=== PATIENT | male | born 1960 | race Caucasian/White ===

== ENCOUNTER → 2022-05-17 12:36 | Outpatient (CLI) | payer OTHER, SELFPAY ==
--- NOTE | ~2022-05-17 | CT_ITS ---
EXAMINATION: CT abdomen pelvis wo con DATE: 05/17/2022 13:05 INDICATION: Left flank pain TECHNIQUE: Computed tomography (CT) of the abdomen and pelvis was performed without intravenous contr ast. The dose-length product (DLP) was 1298.21 mGy-cm. Automated exposure control and iterative recon struction technique were employed. COMPARISON: None FINDINGS: Minimal dependent atelectasis is present in the lung bases. The heart size is normal. Punct ate calcifications in otherwise normal appearing liver and spleen likely represent healed granulomato us disease. The pancreas and adrenal glands are normal. Stones are present in the nondistended gallbl adder. Cysts of the kidneys measure up to 4 cm on the left. No stones are identified in the kidneys, ureters, or bladder. No hydronephrosis or hydroureter. There is severe lumbar spondylosis at L5-S1. T here is no free intraperitoneal gas or evidence of bowel obstruction. IMPRESSION: 1. No CT correlate for the patient's symptoms. No urolithiasis identified. Reviewed, dictated and finalized at location L. CELL BATTERY TECHNICIAN
== END ==
PROVIDERS: PCP Family Medicine; Visit Provider Family Medicine
DX: R10.9 Unspecified abdominal pain (principal)
CPT/HCPCS: 74176

== ENCOUNTER 2022-06-08 10:42 | Inpatient (IN) | payer OTHER, SELFPAY ==
[2022-06-08] VITALS (17 sets, daily range): BP systolic 144–163; BP diastolic 67–98; PULSE 102–135; RESP 18–23; TEMP 36.6; O2SAT 90–98; BMI 48.7
--- NOTE | ~2022-06-08 | NM_ITS ---
EXAMINATION: NM hepatobiliary wo pharm DATE: 06/10/2022 14:26 SLOT OPERATIONS DIRECTOR INDICATION: Abdominal and flank pain. COMPARISON: MRCP dated 06/09/2022 TECHNIQUE: 4.5 mCi Tc-99m mebrofenin (Choletec) was administered intravenously. Scintigraphic images of the abdomen were obtained for one hour. At the 1 hour time point, the patient drank 8 oz Ensure, and imaging was continued for 60 minutes. Gallbladder ejection fraction was calculated by the technol ogist. FINDINGS: There is normal clearance of radiotracer from the blood pool. There is homogeneous tracer u ptake by the liver. Activity progresses to the bowel and gallbladder. The gallbladder ejection fract ion is 29%. Note that with this technique, normal GBEF >= 33%. IMPRESSION: 1. Gallbladder ejection fraction below normal limits measuring 29%. Reviewed, dictated and finalized at location B. OPERATIONS DIRECTOR
--- NOTE | ~2022-06-08 | CT_ITS ---
Clinical Indication: Dyspnea, abdominal pain CT Scan of the Chest, Abdomen, and Pelvis with Contrast: Technique: Contiguous sections were acquired throughout the chest, abdomen, and pelvis after intraven ous administration of 100 cc of Omnipaque 350. Dose reduction technique was used on this scan by uti дмитрийing automated exposure control and iterative reconstruction technique. The dose-length product (DL P) was 2509.77 mGy-cm. COMPARISON: 05/17/2022 Findings: There is no evidence of any pathologic mediastinal, hilar or axillary lymphadenopathy. Calcified medi astinal lymph nodes are noted. No aortic aneurysm or dissection. No large central pulmonary embolus s een. Timing of the contrast bolus is somewhat suboptimal to evaluate for small, peripheral pulmonary emboli. There is no evidence of pleural or pericardial effusion. The lungs are clear, aside from calcified right middle lobe granuloma. The liver, spleen, pancreas, adrenals and kidneys are within normal limits. Small calcified gallstone s are present. No evidence of aortic aneurysm. No lymphadenopathy. No bowel obstruction or bowel wall thickening. There is no evidence to suggest acute appendicitis. Urinary bladder is unremarkable. Prostate gland and seminal vesicles are unremarkable. Impression: No large central pulmonary embolus. Timing of the contrast bolus is suboptimal to evaluate for smalle r, more peripheral pulmonary emboli. Cholelithiasis. Reviewed, dictated and finalized at location . NCED NURSING PROFESSOR Impression: No large central pulmonary embolus. Timing of the contrast bolus is suboptimal to evaluate for smaller, more peripheral pulmonary emboli. Cholelithiasis.
--- NOTE | ~2022-06-08 | XR_ITS ---
EXAMINATION: XR ribs LT 2V DATE: 06/10/2022 19:31 INDICATION: Left rib pain. TECHNIQUE: 2 views of the left ribs on 4 radiographs were obtained. COMPARISON: Chest CT 06/08/2022 FINDINGS: There is no left-sided pneumonia, pleural effusion, or pneumothorax. The heart size is norm al. There is no rib fracture. IMPRESSION: 1. No rib fracture. Reviewed, dictated and finalized at location A. ER BAKER IMPRESSION: 1. No rib fracture.
--- NOTE | ~2022-06-08 | MR_ITS ---
EXAMINATION: MR MRCP wo/w con/w 3D wo ind DATE: 06/09/2022 12:55 INDICATION: Pancreatitis. Left flank pain. TECHNIQUE: Magnetic resonance imaging (MRI) of the abdomen was performed without and with 20 mL Multi Kecia intravenous contrast. Sequences included coronal T2-weighted FS FSE, coronal T2-weighted FSE, a xial T1-weighted LAVA, coronal FS FIESTA, axial dual-echo T1-weighted SPGR, coronal lava-FLEX, sagitt al T2-weighted FSE, axial T2-weighted FSE, and axial DWI. Thick-slab T2-weighted FSE images were obta ined for magnetic resonance cholangiopancreatography (MRCP). Maximum intensity projection 3-D reconst ructions of the volumetric data were created by the technologist. Postcontrast sequences included cor onal LAVA-flex and time course of axial T1-weighted LAVA. COMPARISON: Ultrasound 06/08/2022, CT abdomen and pelvis 06/08/2022 FINDINGS: ABDOMEN MRI: The liver is normal. There is low signal in the spleen on in-phase T1-weighted images, c onsistent with hemosiderosis. The gallbladder is normal in size and contains gallstones. There is inc omplete pancreas divisum. The adrenal glands are normal. There are cysts in the kidneys measuring u t o 3.0 cm on the right. There are no dilated loops of bowel. There are no pathologically enlarged lymp h nodes. There is no free intraperitoneal fluid. ABDOMEN MRCP: The common duct is normal and measures 3 mm . IMPRESSION: 1. Cholelithiasis. 2. No choledocholithiasis. Reviewed, dictated and finalized at location A. CUTTER
--- NOTE | ~2022-06-08 | US_ITS ---
US abdomen limited INDICATION: PROCEDURE: Realtime right upper abdominal ultrasound. COMPARISON: No prior studies for comparison. FINDINGS: Pancreas is obscured by bowel gas. Liver echotexture is diffusely increased, consistent wi th fatty infiltration. There is normal directional flow in the portal vein. There are gallstones. Common bile duct is not visualized due to overlying bowel gas.. No sonographi c Cadena's sign. IMPRESSION: 1: Cholelithiasis. 2: Hepatic steatosis. Reviewed, dictated and finalized at location B. RTER AND CLIPPER
--- NOTE | 2022-06-08 11:28 | ED.ABDPAIN ---
HPI - Abdominal Pain General Chief Complaint: Abdominal Pain Stated Complaint: abd pain for a month Source: patient Mode of arrival: ambulatory Limitations: no limitations History of Present Illness HPI narrative: Patient is a 61-year-old male with a history of hypertension, hyperlipidemia, type 2 diabetes, morbid obesity, lumbar back pain, presenting to the emergency department for evaluation of lower chest wall pain, left flank pain. Patient was seen in his primary care physician's office for a 1 month history of worsening left flank pain and had a negative CT abdomen/pelvis however pain has persisted. Patient was seen in office today and given symptoms, his primary care physician wanted to rule out any cardiac etiology. At the time of my assessment, patient denies any chest pain or shortness of breath. He denies pleuritic pain, cough or hemoptysis. He reports left flank pain that is dull, aching in nature and intermittently sharp. It is exacerbated with movement. He denies any saddle anesthesia. No radiating pain into the frontal abdomen, testicle pain. He denies any radiating pain into the buttocks. He denies focal numbness or weakness. Patient denies any inciting event such as heavy lifting or bending. Patient denies recent surgery or immobility. No recent hospitalizations. No recent long car or air travel. Patient denies palpitations, lightheadedness or dizziness. He denies any midline back pain. I spoke with the patient and reviewed the patient's history. History was also obtained from chart review, I reviewed the patient's primary care physician note from today. Related Data Allergies Allergy/AdvReac Type Severity Reaction Status Date / Time No Known Allergies Allergy Mild Unverified 03/08/22 16:19 Review of Systems Review of Systems: CONSTITUTIONAL: Denies fever, chills, or sweats. ENT: Denies rhinorrhea, congestion, sore throat, or otalgia. CARDIOVASCULAR: Denies chest pain, palpitations, or edema. RESPIRATORY: Denies cough or dyspnea. GASTROINTESTINAL: Denies abdominal pain, nausea, vomiting, or diarrhea. Reports left flank pain. GENITOURINARY: Denies dysuria or hematuria. SKIN: Denies rash or itching. MUSCULOSKELETAL: Denies back pain, joint pain, or myalgia. NEUROLOGIC: Denies headache, numbness, or weakness. [facility] Past Medical History Medical History (Updated 06/08/22 @ 15:32 by Pao Eaton MD) Acute left-sided low back pain without sciatica CT of the abdomen and pelvis revealed no obvious reason for his back pain. No obstructing stones 05/17/2022. Acute non-recurrent maxillary sinusitis Bilateral chronic knee pain Chest pain (~05/17/22) Chest/abdomen/pelvis CTA negative for PE or other pathology In the ER 06/08/2022. Controlled diabetes mellitus with hyperglycemia, with long-term current use of insulin glucose 92 and hemoglobin A1c 8.3 on 04/23/2021 with microalbumin ratio of 22. glucose 89 with hemoglobin A1c 7.8 on 03/03/2022. Glucose 178 with hemoglobin A1c 9.5 with microalbumin ratio of 5.5 on 06/03/2022. Diabetic peripheral neuropathy Hyperkalemia (03/03/22) potassium 5.5 on 03/03/2022. potassium 5.4 on 03/22/2022. Potassium 5.2 on 06/03/2022. Morbid obesity with BMI of 50.0-59.9, adult Family History Family History Mother Patient's mother is , Onset Age: 81 Acute myocardial infarction Family history of malignant neoplasm Father Patient's father is , Onset Age: 82 Family history of malignant neoplasm Grandparent Family history of cardiovascular disease Social History Social History Years smoked: 44 Smoking status: Former smoker Tobacco type: cigarettes Alcohol intake: current Drinks per week: 3 Alcohol use details: occassionally Substance use: former Substance use type: does not use Lack of Transportation: No Lack of Food: Never Cand[place]
[2022-06-08 11:40] LABS: Add Urine Microscopic? YES; Appearance Urine Clear (Clear); Bilirubin Urine Negative (Negative); Blood Urine Trace-intact (Negative); Color Urine Yellow (Yellow); Glucose Urine UA 3+ mg/dL (Negative); Ketones Urine Negative (Negative); Leukocyte Esterase Ur Negative LEU/UL (Negative); Nitrate Urine Negative (Negative); Protein Urine Negative (Negative); Urobilinogen Urine 0.2 mg/dL (<2.0); pH Urine 5.5 (5.0-9.0)
[2022-06-08 11:51] LABS: Alanine Aminotransferase 23 U/L (6-50); Albumin Level 4.6 g/dL (3.5-5.1); Alkaline Phosphatase 74 U/L (38-126); Anion Gap 9 mmol/L (8-16); Aspartate Amino Transferase 24 U/L (17-59); Bilirubin,Total 0.6 mg/dL (0.2-1.3); Blood Urea Nitrogen 21 mg/dL (9-20); Carbon Dioxide 26 mmol/L (22-30); Chloride 99 mmol/L (98-107); Estimated CRCL calculation 174 ml/min; Estimated Glomerular Filt Rate > 60; Glucose 352 mg/dL (65-110); Lipase 855 U/L (23-300); Potassium 4.4 mmol/L (3.4-5.0); Sodium 134 mmol/L (137-145)
[2022-06-08 11:54] LABS: Mucus Urine Rare /lpf; Squamous Epithelial Cell Urine Rare /hpf (Few); WBC Urine 0-3 /hpf
--- NOTE | 2022-06-08 12:24 | ECG_ITS ---
Measurements Intervals [place] Rate: 125 P: 54 FL: 131 QRS: 55 QRSD: 98 T: 46 QT: 318 QTc: 460 Interpretive Statements SINUS TACHYCARDIA ABNORMAL RHYTHM ECG NO PREVIOUS ECG AVAILABLE FOR COMPARISON Electronically Signed On 06-08-2022 15:05:27 STICK WELDER by Dary Xiong M.D.
[2022-06-08] MEDS: SODIUM CHLORIDE 0.9% IV 1,000 ML 999 ML IV CONT (12:37)
[2022-06-08] MEDS: ONDANSETRON INJ 4 MG/2 ML VIAL IV PUSH (12:37)
[2022-06-08] MEDS: MORPHINE SULFATE (*CRX) 4 MG/ML INJ IV PUSH (12:38)
[2022-06-08 12:43] LABS: Basophils Absolute Auto 0.1 K/mm3 (0.0-0.1); Basophils Percent Auto 0.7 % (0.2-1.2); Eosinophils Absolute Auto 0.2 K/mm3 (0-0.3); Eosinophils Percent Auto 2.4 % (0-4.4); Hemoglobin 15.5 g/dL (14.0-18.0); Immature Granulocyte Absolute 0.06 K/mm3 (0.00-0.031); Immature Granulocyte Percent A 0.6 % (0-0.5); Lymphocytes Absolute Auto 1.74 K/mm3 (0.9-3.2); Lymphocytes Percent Auto 17.2 % (18.3-44.2); Mean Corpuscular Hemoglobin 30.3 pg (26-34); Mean Platelet Volume 9.9 fl (7.4-10.4); Monocytes Absolute Auto 0.9 K/mm3 (0.1-0.6); Monocytes Percent Auto 8.4 % (2.6-8.5); Neutrophils Absolute Auto 7.2 K/mm3 (1.3-6.7); Neutrophils Percent Auto 70.7 % (45.5-73.1); Platelet Count Result 208 k/mm3 (150-375); Red Blood Count 5.11 M/mm3 (4.6-6.20); Red Cell Distribution Width 13.1 % (11.5-14.5); White Blood Count 10.1 K/mm3 (4.5-10.0)
[2022-06-08 13:30] LABS: INR 0.9; Prothrombin Time 11.8 Seconds (11.1-14.7)
[2022-06-08 13:31] LABS: Partial Thromboplastin Time 24.7 SECONDS (22.3-36.8)
[2022-06-08 13:32] LABS: Troponin I < 0.012 ng/mL (0.000-0.034)
[2022-06-08 14:15] LABS: CRP 0.6 mg/dL (<1.0)
[2022-06-08 14:30] LABS: Erythrocyte Sedimentation Rate 14 mm/hr (0-20)
[2022-06-08 14:30] LABS: Lactic Acid Reflex 1.2 mmol/L (0.7-2.0)
[2022-06-08 15:20] LABS: Influenza A QL RT-PCR Negative (Negative); Influenza B QL RT-PCR Negative (Negative); SARS-CoV-2 RNA PCR Negative
--- NOTE | 2022-06-08 18:50 | ADMGEN ---
This patient, Ruddy Cohen, was admitted to [facility] Surg Room 321-01 at 1745. Patient/family oriented to hospital policies and general routines including ID bracelet, bed and alarms, visiting hours, pain management, procedures, bathroom and other care routines, personal items, smoking policy, room service/diet, and visiting hours. Information on how to activate the Rapid Response Team has been discussed. Patient/Family are encouraged to report perceived risks to care and to ask questions if they do not understand what they are told or what they should do.
[2022-06-08] MEDS: SODIUM CHLORIDE 0.9% IV 1,000 ML 125 ML IV CONT (21:00)
--- NOTE | 2022-06-08 21:03 | PM.IMHP ---
H&P: HPI History of Present Illness Date/Time: 06/08/22 21:03 Chief Complaint: Abdominal pain Narrative: This is a 61-year-old male patient who has a history of diabetes type 2 and hypertension. The patient stated that he started Trulicity approximately 3 weeks ago. The patient had been on Ozempic and tolerated that well. However due to the shortage of Ozempic the patient was switched to Trulicity. The patient stated when he uses Trulicity he started to have abdominal pain and feels nauseated. The patient came to the emergency room with complaints of left flank pain. The patient was seen in the physician's office approximately 1 month ago due to worsening flank pain and had a negative CT of the abdomen and pelvis. His white counts 10.1. Accu-Chek is 224. Lactic acid is 1.2. Patient's lipase was 855. Glucose 3+. The patient was negative for influenza A/B and COVID. Abdominal ultrasound was read as cholelithiasis and hepatic steatosis. Chest abdomen pelvis CTA was read as no large central pulmonary embolus. It timing of the contrast bolus is suboptimal to evaluate for smaller more peripheral pulmonary emboli. Cholelithiasis. The patient was given IV fluids, morphine and Zofran. The patient is being admitted to observation status on the date of service of 06/08/2022. Review of Systems Review of Systems: See HPI All systems reviewed & are unremarkable except as noted in HPI and below Constitutional: Constitutional: Reports as per HPI and Reports no additional constitutional complaints Eyes: Eyes: Reports as per HPI and Reports no additional eye complaints ENT: Reports system reviewed and no additional complaints, except as documented and Reports Normal hearing present Cardiovascular: Cardiovascular: Reports no additional cardiovascular complaints Respiratory: Respiratory: Reports no additional respiratory complaints and Reports no additional respiratory complaints Gastrointestinal: Gastrointestinal: Reports as per HPI and Reports no additional gastrointestinal complaints Musculoskeletal: Musculoskeletal: Reports no additional musculoskeletal complaints Integumentary/Breasts: Skin/Breast: Reports system reviewed and no additional complaints, except as docu and Reports as per HPI Neurologic: Reports system reviewed and no additional complaints, except as documented, Reports as per HPI and Reports Normal hearing present Psychiatric: Psychiatric: Reports no additional psychiatric complaints and Reports as per HPI Endocrine: Endocrine: Reports no additional endocrine complaints Hematologic/Lymphatic: Hematologic/Lymphatic: Reports no additional hematologic/lymphatic complaints Allergic/Immunologic: Allergic/Immunologic: Reports no additional allergic/immunologic complaints PMFSH Past Medical History Medical History (Updated 06/09/22 @ 02:00 by Rea Brown NP) Acute left-sided low back pain without sciatica CT of the abdomen and pelvis revealed no obvious reason for his back pain. No obstructing stones 05/17/2022. Acute non-recurrent maxillary sinusitis Bilateral chronic knee pain Chest pain (~05/17/22) Chest/abdomen/pelvis CTA negative for PE or other pathology In the ER 06/08/2022. Controlled diabetes mellitus with hyperglycemia, with long-term current use of insulin glucose 92 and hemoglobin A1c 8.3 on 04/23/2021 with microalbumin ratio of 22. glucose 89 with hemoglobin A1c 7.8 on 03/03/2022. Glucose 178 with hemoglobin A1c 9.5 with microalbumin ratio of 5.5 on 06/03/2022. Diabetic peripheral neuropathy Hyperkalemia (03/03/22) potassium 5.5 on 03/03/2022. potassium 5.4 on 03/22/2022. Potassium 5.2 on 06/03/2022. Morbid obesity with BMI of 50.0-59.9, adult Surgical History Surgical History (Updated 06/09/22 @ 01:55 by Rae Brown NP) H/O vasectomy S/P ORIF (open reduction internal fixation) fracture Right femur rosa isela which was subsequently removed. Right wrist surgery Family History Family Hist
[2022-06-08 23:46] LABS: Glucose Point of Care 224 mg/dl (65-105)
[2022-06-09] VITALS (10 sets, daily range): BP systolic 116–172; BP diastolic 48–85; PULSE 95–114; RESP 18–20; TEMP 36.2–36.3; O2SAT 92–96
--- NOTE | 2022-06-09 05:41 | PC.NURSE ---
informing MD chapa about pt bp 172/85
[2022-06-09] MEDS: SODIUM CHLORIDE 0.9% IV 1,000 ML 125 ML IV CONT ×2 (05:44→17:54)
[2022-06-09] MEDS: hydrALAZINE HCL 20 MG/ML VIAL 10 MG IV PUSH (06:00)
[2022-06-09 07:06] LABS: Basophils Absolute Auto 0.1 K/mm3 (0.0-0.1); Basophils Percent Auto 0.9 % (0.2-1.2); Eosinophils Absolute Auto 0.2 K/mm3 (0-0.3); Eosinophils Percent Auto 2.5 % (0-4.4); Hematocrit 44.3 % (42.0-52.0); Hemoglobin 14.8 g/dL (14.0-18.0); Immature Granulocyte Absolute 0.05 K/mm3 (0.00-0.031); Immature Granulocyte Percent A 0.6 % (0-0.5); Lymphocytes Absolute Auto 1.79 K/mm3 (0.9-3.2); Lymphocytes Percent Auto 20.2 % (18.3-44.2); Mean Corpuscular HGB Conc 33.4 g/dl (32-36); Mean Corpuscular Hemoglobin 30.5 pg (26-34); Mean Corpuscular Volume 91.3 fl (80-100); Monocytes Absolute Auto 0.8 K/mm3 (0.1-0.6); Monocytes Percent Auto 8.9 % (2.6-8.5); Neutrophils Absolute Auto 5.9 K/mm3 (1.3-6.7); Neutrophils Percent Auto 66.9 % (45.5-73.1); Platelet Count Result 185 k/mm3 (150-375); Red Blood Count 4.85 M/mm3 (4.6-6.20); Red Cell Distribution Width 13.2 % (11.5-14.5); White Blood Count 8.9 K/mm3 (4.5-10.0)
[2022-06-09 07:22] LABS: Lactic Acid Reflex 0.8 mmol/L (0.7-2.0)
[2022-06-09 07:23] LABS: Alanine Aminotransferase 24 U/L (6-50); Albumin Level 4.1 g/dL (3.5-5.1); Alkaline Phosphatase 66 U/L (38-126); Anion Gap 7 mmol/L (8-16); Aspartate Amino Transferase 23 U/L (17-59); Bilirubin,Total 0.7 mg/dL (0.2-1.3); Blood Urea Nitrogen 14 mg/dL (9-20); Calcium 8.7 mg/dL (8.4-10.2); Carbon Dioxide 30 mmol/L (22-30); Chloride 102 mmol/L (98-107); Estimated CRCL calculation 205 ml/min; Estimated Glomerular Filt Rate > 60; Glucose 193 mg/dL (65-110); Lactate Dehydrogenase 149 U/L (120-246); Lipase 122 U/L (23-300); Magnesium 1.9 mg/dL (1.6-2.3); Potassium 3.6 mmol/L (3.4-5.0); Sodium 139 mmol/L (137-145)
--- NOTE | 2022-06-09 08:04 | PM.IMPN ---
Progress Note: A&P Assessment and Plan (1) Pancreatitis: Code(s): K85.90 - Acute pancreatitis without necrosis or infection, unspecified Status: Acute Assessment and Plan: IV fluids, monitor Could be secondary to Trulicity Appears resolved today, lipase essentially back to normal (2) Cholelithiasis: Code(s): K80.20 - Calculus of gallbladder without cholecystitis without obstruction Status: Acute Assessment and Plan: Appreciate general surgery consultation, trend lipase and LFTs MRCP showed cholelithiasis without choledocholithiasis, no indication for cholecystitis (3) Chronic depression: Code(s): F32.9 - Major depressive disorder, single episode, unspecified Status: Acute Assessment and Plan: Continue duloxetine, stable (4) Mixed hyperlipidemia: Code(s): E78.2 - Mixed hyperlipidemia Status: Acute Assessment and Plan: Continue statin (5) Essential (primary) hypertension: Code(s): I10 - Essential (primary) hypertension Status: Acute Assessment and Plan: Continue lisinopril (6) INOCENTE on CPAP: Code(s): G47.33 - Obstructive sleep apnea (adult) (pediatric); Z99.89 - Dependence on other enabling machines and devices Status: Acute Assessment and Plan: Continue home settings for CPAP (7) Controlled diabetes mellitus with hyperglycemia, with long-term current use of insulin: Code(s): E11.65 - Type 2 diabetes mellitus with hyperglycemia; Z79.4 - [facility] (current) use of insulin Status: Acute Assessment and Plan: Continue Accu-Cheks and sliding scale insulin, hold metformin A1c is 9 Consult consumer educator (8) Abdominal pain: Code(s): R10.9 - Unspecified abdominal pain Status: Acute Assessment and Plan: Unsure of etiology, appreciate GI consultation, plan is for EGD and possible colonoscopy Plan DVT prophylaxis with SCDs GI prophylaxis not indicated Code status full code Subjective Date/time seen: 06/09/22 08:04 Interval history: No overnight events noted. No chest pain or shortness of breath. No nausea, vomiting or diarrhea. No fevers or chills. Still with continued abdominal pain despite pain medication. Review of Systems Review of Systems: 12 point review of systems was assessed and was negative except as noted in the HPI Exam Narrative: General: Appears to be in acute distress with abdominal pain, alert and oriented per baseline HEENT: Atraumatic, normocephalic, mucous membranes moist CV: Regular rate and rhythm, S1, S2 Lungs: Clear to auscultation bilaterally, no rales or crackles noted, no wheezes, good air entry Abdomen: Soft, nontender, nondistended Extremities: Normal to inspection Skin: No rashes noted, no lesions or wounds seen Psych: Euthymic, normal affect Objective Data Vital Signs Vital Signs: Vital Signs - 24 hr 06/08/22 10:56 06/08/22 11:06 06/08/22 11:15 Temperature 97.8 F Pulse Rate 130 H 130 H 135 H Respiratory Rate 20 23 H Blood Pressure 148/79 H Pulse Oximetry 93 95 95 Oxygen Delivery Room Air 06/08/22 11:30 06/08/22 11:45 06/08/22 12:00 Temperature Pulse Rate 129 H Respiratory Rate Blood Pressure Pulse Oximetry 92 93 94 Oxygen Delivery 06/08/22 12:15 06/08/22 12:30 06/08/22 12:56 Temperature Pulse Rate 129 H 123 H 131 H Respiratory Rate 20 Blood Pressure Pulse Oximetry 95 93 Oxygen Delivery 06/08/22 13:00 06/08/22 13:05 06/08/22 13:30 Temperature Pulse Rate 129 H 127 H 133 H Respiratory Rate Blood Pressure 163/73 H Pulse Oximetry 91 90 90 Oxygen Delivery 06/08/22 13:45 06/08/22 13:46 06/08/22 17:30 Temperature Pulse Rate 130 H 132 H 118 H Respiratory Rate 22 H Blood Pressure 154/67 H Pulse Oximetry 92 98 Oxygen Delivery 06/08/22 22:00 06/08/22 20:00 06/09/22 00:00 Temperature 9
[2022-06-09 08:09] LABS: Glucose Point of Care 197 mg/dl (65-105)
[2022-06-09] MEDS: lisinopriL 20 MG TABLET PO (08:47)
[2022-06-09] MEDS: DULoxetine HCL 60 MG CAPSULE.DR PO (08:47)
--- NOTE | 2022-06-09 10:48 | PM.CNGS ---
Assessment and Plan Assessment and plan (1) Pancreatitis: Code(s): K85.90 - Acute pancreatitis without necrosis or infection, unspecified Status: Acute Assessment and Plan: The patient's presentation and pain is atypical for what you would expect with acute pancreatitis. He has had ongoing left flank pain for over a month. He presented with an elevated lipase of 855. CTA chest/abdomen/pelvis did not show any findings of inflammatory change around the pancreas to suggest acute pancreatitis. Lipase has normalized this morning. Etiology is unclear. Medication-induced pancreatitis from the Trulicity is a possibility, although rare. He does have cholelithiasis noted on imaging as well, which is a common cause for pancreatitis, but the patient's clinical picture is atypical for what you would expect with acute gallstone pancreatitis. I discussed the case with Dr. Fernández. We will order an MRCP for today and consult GI to evaluate the patient. Will defer surgery for now while awaiting further work-up and GI's recommendations. (2) Cholelithiasis: Code(s): K80.20 - Calculus of gallbladder without cholecystitis without obstruction Status: Acute Assessment and Plan: Noted on CTA and ultrasound. (3) Left flank pain: Code(s): R10.9 - Unspecified abdominal pain Status: Acute Assessment and Plan: Unclear etiology. Left flank pain for > 1 month with atypical features for acute pancreatitis. His pain is unchanged since stopping Trulicity. He does feel it has improved slightly since being admitted, but reports it typically improves when lying in bed with his left arm elevated which he has been doing since being admitted. (4) Diabetes mellitus type 2, insulin dependent: Code(s): E11.9 - Type 2 diabetes mellitus without complications; Z79.4 - group home (current) use of insulin Status: Acute Assessment and Plan: Increases risks for surgery. (5) Obesity, morbid, BMI 40.0-49.9: Code(s): E66.01 - Morbid (severe) obesity due to excess calories Status: Acute Assessment and Plan: Increases risks for surgery. (6) Tobacco use disorder, continuous: Code(s): F17.209 - Nicotine dependence, unspecified, with unspecified nicotine-induced disorders Status: Acute Assessment and Plan: Quit smoking about 6 months ago and had smoked for over 40 years. Still uses chewing tobacco. Discussed how this can increase risks for surgery. Recommended cessation. Plan I have discussed the patient's case and plan of care with Dr. Fernández. Thank you for allowing us to see the patient in consultation and we will continue to follow along with you. History of Present Illness Consult details Consult date: 06/09/22 Reason for consult: other (Cholelithiasis, Pancreatitis) Requesting physician: Rae Brown NP Narrative: This is a 61-year-old obese man with insulin-dependent type 2 diabetes, hypertension, and tobacco dependence, who we have been asked to see in consultation for cholelithiasis. He reportedly was started on Trulicity over a month ago. Shortly after starting the medication, he began to have left flank pain. The pain was worse in the mornings and would occur daily. The pain typically seemed to improve throughout the day. He felt that if he had his left arm lifted above his head and rested lying down, his pain would subside. This pain did not wake him at night, but he started sleeping prone with his arms raised to stay comfortable. Movement is what typically aggravates the pain. He initially thought this was musculoskeletal and saw his PCP. He was set up for an outpatient CT scan abdomen/pelvis on 05/17/[address] findings that correlate with his symptoms. His PCP prescribed him hydrocodone, which would help his pain for short periods of time. He searched the side effects of Trulicity online and thought this could be contributing to his pain. Therefore, he stopped his
[2022-06-09] MEDS: HYDROcodone/acetaminophen (*CRX) 5-325 MG TABLET 1 TAB PO (11:04)
[2022-06-09 11:49] LABS: Glucose Point of Care 175 mg/dl (65-105)
--- NOTE | 2022-06-09 12:58 | PCCCNOTE ---
On 06/09/22, the student, [Celine Ashby], provided care and completed [facility] documentation on this patient. I have reviewed the student's documentation and agree with the findings.
--- NOTE | 2022-06-09 16:07 | PC.NURSE ---
Pt is A&O4 male who has been NPO today. Pt is resting in bed. Pt went for MRCP today. Pt has participated and contributed in plan of care. Will continue to monitor pt.
[2022-06-09 17:02] LABS: Glucose Point of Care 187 mg/dl (65-105)
--- NOTE | 2022-06-09 17:11 | WPDGICN ---
Assessment and Plan Assessment and plan (1) Pancreatitis: Code(s): K85.90 - Acute pancreatitis without necrosis or infection, unspecified Status: Acute Assessment and Plan: probably from trulicity, also noted pancreas divisum in MRCP but pancreas otherwise look normal, also normal bile duct size given persistent pain in luq for over a month will also do EGD to assess for pud and othe causes of pain (2) Cholelithiasis: Code(s): K80.20 - Calculus of gallbladder without cholecystitis without obstruction Status: Acute Assessment and Plan: atypical presentation because pain in left side surgery on board (3) Left upper quadrant pain: Code(s): R10.12 - Left upper quadrant pain Status: Acute Assessment and Plan: egd ? pancreatitis ? MSK (4) Diabetes mellitus type 2, insulin dependent: Code(s): E11.9 - Type 2 diabetes mellitus without complications; Z79.4 - exterminator termite (current) use of insulin Status: Acute Assessment and Plan: a1c 9 trulicity was discontinued (5) Obesity, morbid, BMI 40.0-49.9: Code(s): E66.01 - Morbid (severe) obesity due to excess calories Status: Acute (6) Essential (primary) hypertension: Code(s): I10 - Essential (primary) hypertension Status: Acute (7) Pancreas divisum: Code(s): Q45.3 - Other congenital malformations of pancreas and pancreatic duct Status: Acute Assessment and Plan: new finding higher risk for patients to develop pancreatitis GI Consult Note Consult date/time: 06/09/22 17:11 Reason for consult: luq pain, pancreatitis HPI: Ruddy Cohen is a 61 year old male with history of insulin-dependent type 2 diabetes, hypertension, and tobacco dependence here for intermittent pain in LUQ mostly every day, sometimes pain aggravated by movement, he initially thought this was musculoskeletal and saw his PCP, patient has been using leftover norco as needed and this has been going on for a month, also for same time he has been taking trulicity and after doing some reading he discontinued thinking could be side effect. He had outpatient CT scan abdomen/pelvis on 05/17/[address] findings that correlate with his symptoms. Few occasions had nausea. Finally his pcp adviced to come to ER because chronicity of symptoms. In the ER, lipase 855, WBC count 10,100, normal LFTs, normal CRP, negative troponin. CTA chest, abdomen, and pelvis was negative for large central pulmonary embolism and cholelithiasis. He then had an abdominal ultrasound that showed hepatic steatosis and cholelithiasis. MRCP showed incomplete pancreas divisum and cholelithiasis. Never had scopes. Review of Systems Review of Systems: All systems reviewed & are unremarkable except as noted in HPI and below Constitutional: Constitutional: Reports no additional constitutional complaints, Denies chills, Denies fatigue, Denies fever(s), Denies poor appetite and Denies weakness Eyes: Eyes: Reports no additional eye complaints ENT: Reports system reviewed and no additional complaints, except as documented and Denies dizziness Cardiovascular: Cardiovascular: Reports no additional cardiovascular complaints, Denies chest pain and Denies leg edema Respiratory: Respiratory: Reports no additional respiratory complaints, Denies cough and Denies dyspnea Gastrointestinal: Gastrointestinal: Reports as per HPI, Reports no additional gastrointestinal complaints, Denies abdominal pain, Denies melena, Denies bloating, Denies hematochezia, Denies change in bowel habits, Denies change in stool character, Denies diarrhea, Reports nausea, Denies vomiting and Reports other (left flank pain) Genitourinary: Genitourinary: Reports no additional male genitourinary complaints and Denies dysuria Musculoskeletal: Musculoskeletal: Reports no additional musculoskeletal complaints, Denies abnormal gait and Denies joint swelling Integumentary/Breasts: Ski
[2022-06-09] MEDS: SUCRALFATE SUSP 100 MG/ML 10 ML UDC 1000 MG PO (21:00)
[2022-06-09 22:05] LABS: Glucose Point of Care 155 mg/dl (65-105)
[2022-06-10] VITALS (12 sets, daily range): BP systolic 126–159; BP diastolic 70–94; PULSE 93–113; RESP 13–24; TEMP 36.1–36.6; O2SAT 93–97
[2022-06-10] MEDS: SODIUM CHLORIDE 0.9% IV 1,000 ML 125 ML IV CONT (02:10)
[2022-06-10 08:32] LABS: Glucose Point of Care 179 mg/dl (65-105)
[2022-06-10] MEDS: lisinopriL 20 MG TABLET PO (10:13)
[2022-06-10] MEDS: DULoxetine HCL 60 MG CAPSULE.DR PO (10:13)
[2022-06-10] MEDS: LACTATED RINGERS 1,000 ML 150 ML IV CONT (10:43)
--- NOTE | 2022-06-10 10:45 | PM.IMPN ---
Progress Note: A&P Assessment and Plan (1) Pancreatitis: Code(s): K85.90 - Acute pancreatitis without necrosis or infection, unspecified Status: Acute Assessment and Plan: Could be secondary to Trulicity, on hold Resolved, lipase essentially back to normal, lipase down to 50 today, procalcitonin 0, CRP 0.8 (2) Cholelithiasis: Code(s): K80.20 - Calculus of gallbladder without cholecystitis without obstruction Status: Acute Assessment and Plan: Appreciate general surgery consultation, trend lipase and LFTs--all WNL MRCP showed cholelithiasis without choledocholithiasis, no indication for cholecystitis Check HIDA scan with CCK--positive for reduced function of gallbladder, unsure of cholecystectomy is warranted however, not convinced this is the etiology to his pain (3) Chronic depression: Code(s): F32.9 - Major depressive disorder, single episode, unspecified Status: Acute Assessment and Plan: Continue duloxetine, stable (4) Mixed hyperlipidemia: Code(s): E78.2 - Mixed hyperlipidemia Status: Acute Assessment and Plan: Continue statin (5) Essential (primary) hypertension: Code(s): I10 - Essential (primary) hypertension Status: Acute Assessment and Plan: Continue lisinopril (6) INOCENTE on CPAP: Code(s): G47.33 - Obstructive sleep apnea (adult) (pediatric); Z99.89 - Dependence on other enabling machines and devices Status: Acute Assessment and Plan: Continue home settings for CPAP (7) Controlled diabetes mellitus with hyperglycemia, with long-term current use of insulin: Code(s): E11.65 - Type 2 diabetes mellitus with hyperglycemia; Z79.4 - termite control service representative (current) use of insulin Status: Acute Assessment and Plan: Continue Accu-Cheks and sliding scale insulin, hold metformin A1c is 9 Consult clinical trial educator (8) Abdominal pain: Code(s): R10.9 - Unspecified abdominal pain Status: Acute Assessment and Plan: Unsure of etiology, appreciate GI consultation, plan is for EGD and possible colonoscopy Also seems to radiate into spine, check CT thoracic + lumbar spine d/t h/o severe spondylosis, possible paraspinal abscess vs MSK etiology for radiculopathy? Update: Reviewed CT scan addendum to address spine, no significant etiology to his abdominal/flank pain has been found (9) Gastritis and duodenitis: Code(s): K29.90 - Gastroduodenitis, unspecified, without bleeding Status: Acute Assessment and Plan: EGD performed today showed esophagitis, gastritis and duodenitis, recommend discontinuing tobacco containing products, starting PPI and Carafate, follow-up biopsies, defer further management to GI Plan DVT prophylaxis with SCDs GI prophylaxis not indicated Code status full code Subjective Date/time seen: 06/10/22 10:45 Interval history: No overnight events noted. No chest pain or shortness of breath. No nausea, vomiting or diarrhea. No fevers or chills. Still with continued abdominal pain despite pain medication. Review of Systems Review of Systems: 12 point review of systems was assessed and was negative except as noted in the HPI Exam Narrative: General: Appears to be in acute distress with abdominal pain, alert and oriented per baseline HEENT: Atraumatic, normocephalic, mucous membranes moist CV: Regular rate and rhythm, S1, S2 Lungs: Clear to auscultation bilaterally, no rales or crackles noted, no wheezes, good air entry Abdomen: Soft, nontender, nondistended Extremities: Normal to inspection Skin: No rashes noted, no lesions or wounds seen Psych: Euthymic, normal affect Objective Data Vital Signs Vital Signs: Vital Signs - 24 hr 06/09/22 13:59 06/09/22 16:02 06/09/22 19:58 Temperature 97.4 F L Pulse Rate 105 H 111 H Respiratory Rate 20 Blood Pressure 116/48 L Pulse Oximetry 9
[2022-06-10 10:48] LABS: Glucose Point of Care 170 mg/dl (65-105)
--- NOTE | 2022-06-10 11:16 | WPDANESEPPF ---
Anes - Initial Pre Proc Eval Procedure: Operation Date: 06/10/22 15:00 Proposed Procedures p Esophagogastroduodenoscopy - Eliceo Maynard MD Date/Time: 06/10/22 11:16 Surgeon: Rod Hernandez MD Pre Op Diagnosis: pancreatitis,tachycardia Patient Data Age: 61 Gender: M Height: 1.83 m Weight: 163 kg Last Vital Signs Temp 97 F L 06/10/22 10:41 Pulse 113 H 06/10/22 10:41 Resp 19 06/10/22 10:41 BP 159/94 H 06/10/22 10:41 Pulse Ox 97 06/10/22 10:41 O2 Del Method Room Air 06/10/22 10:41 Allergies Allergy/AdvReac Type Severity Reaction Status Date / Time No Known Allergies Allergy Mild Unverified 06/10/22 10:40 Home Medications Medication Instructions Recorded Confirmed Type insulin degludec 200 unit/mL (3 See Rx Instructions .Route 07/21/21 06/08/22 Rx mL) subcutaneous pen (Tresiba .COMPLEX #36 syringes FlexTouch U-200 insulin) atorvastatin 40 mg tablet (Lipitor) 40 mg PO DAILY #90 tabs 10/15/21 06/08/22 Rx dapagliflozin 10 mg tablet 10 mg PO QAM #90 tabs 10/15/21 06/08/22 Rx (Farxiga) duloxetine 60 mg capsule,delayed 60 mg PO DAILY #90 caps 11/30/21 06/08/22 Rx release metformin 500 mg tablet,extended 2,000 mg PO QPM #360 tabs 01/17/22 06/08/22 Rx release 24 hr naproxen 500 mg tablet 500 mg PO BID PRN pain #60 tabs 01/31/22 06/08/22 Rx dulaglutide 1.5 mg/0.5 mL 1.5 mg (0.5 mL) subcut WEEKLY #2 mL 05/11/22 06/08/22 Rx subcutaneous pen injector (Trulicity) lisinopril 20 mg tablet 20 mg PO DAILY #90 tabs 05/11/22 06/08/22 Rx hydrocodone 5 mg-acetaminophen 325 1 tablet PO Q6H PRN pain #120 tabs 06/08/22 06/08/22 Rx mg tablet Laboratory Tests 06/09/22 06/09/22 06/09/22 11:44 17:00 21:23 POC Capillary Glucose 175 mg/dl H mg/dl 187 mg/dl H mg/dl 155 mg/dl H mg/dl (65-105) (65-105) (65-105) 06/10/22 06/10/22 08:17 10:45 POC Capillary Glucose 179 mg/dl H mg/dl 170 mg/dl H mg/dl (65-105) (65-105) Patient hx anesthesia problems: none Family hx anesthesia problems: none Results Review: All pre-operative results and documents have been reviewed as part of the pre-operative evaluation. [facility] Past Medical History Medical History (Updated 06/09/22 @ 18:06 by Orquidea Rivero DO) Acute left-sided low back pain without sciatica CT of the abdomen and pelvis revealed no obvious reason for his back pain. No obstructing stones 05/17/2022. Acute non-recurrent maxillary sinusitis Bilateral chronic knee pain Chest pain (~05/17/22) Chest/abdomen/pelvis CTA negative for PE or other pathology In the ER 06/08/2022. Controlled diabetes mellitus with hyperglycemia, with long-term current use of insulin glucose 92 and hemoglobin A1c 8.3 on 04/23/2021 with microalbumin ratio of 22. glucose 89 with hemoglobin A1c 7.8 on 03/03/2022. Glucose 178 with hemoglobin A1c 9.5 with microalbumin ratio of 5.5 on 06/03/2022. Diabetic peripheral neuropathy Hyperkalemia (03/03/22) potassium 5.5 on 03/03/2022. potassium 5.4 on 03/22/2022. Potassium 5.2 on 06/03/2022. Left upper quadrant pain Morbid obesity with BMI of 50.0-59.9, adult Pancreas divisum Surgical History Surgical History H/O vasectomy S/P ORIF (open reduction internal fixation) fracture Right femur rosa isela which was subsequently removed. Right wrist surgery Family History Family History Mother Patient's mother is , Onset Age: 81 Acute myocardial infarction Family history of malignant neoplasm Father Patient's father is , Onset Age: 82 Family history of malignant neoplasm Grandparent Family history of cardiovascular disease Social History Social History Social History: The patient is and lives with his he has 3 children. The patient is currently unemployed. The patient
[2022-06-10] MEDS: BENZOCAINE (*SP) 60 ML SPRAY CAN (HURRICAINE) 1 SPRAY MUCOUS MEM (11:23)
[2022-06-10 11:53] LABS: Glucose Point of Care 173 mg/dl (65-105)
[2022-06-10 14:59] LABS: Basophils Absolute Auto 0.1 K/mm3 (0.0-0.1); Basophils Percent Auto 0.7 % (0.2-1.2); Eosinophils Absolute Auto 0.3 K/mm3 (0-0.3); Eosinophils Percent Auto 2.8 % (0-4.4); Hematocrit 47.2 % (42.0-52.0); Hemoglobin 15.4 g/dL (14.0-18.0); Immature Granulocyte Absolute 0.04 K/mm3 (0.00-0.031); Immature Granulocyte Percent A 0.4 % (0-0.5); Lymphocytes Absolute Auto 1.44 K/mm3 (0.9-3.2); Lymphocytes Percent Auto 14.9 % (18.3-44.2); Mean Corpuscular HGB Conc 32.6 g/dl (32-36); Mean Corpuscular Hemoglobin 30.1 pg (26-34); Mean Corpuscular Volume 92.2 fl (80-100); Mean Platelet Volume 9.9 fl (7.4-10.4); Monocytes Absolute Auto 0.7 K/mm3 (0.1-0.6); Monocytes Percent Auto 7.4 % (2.6-8.5); Neutrophils Absolute Auto 7.1 K/mm3 (1.3-6.7); Neutrophils Percent Auto 73.8 % (45.5-73.1); Platelet Count Result 199 k/mm3 (150-375); Red Blood Count 5.12 M/mm3 (4.6-6.20); Red Cell Distribution Width 13.2 % (11.5-14.5); White Blood Count 9.7 K/mm3 (4.5-10.0)
[2022-06-10 15:12] LABS: Lipase 50 U/L (23-300)
[2022-06-10 15:14] LABS: Alanine Aminotransferase 25 U/L (6-50); Albumin Level 4.2 g/dL (3.5-5.1); Alkaline Phosphatase 69 U/L (38-126); Anion Gap 5 mmol/L (8-16); Aspartate Amino Transferase 23 U/L (17-59); Bilirubin,Total 0.7 mg/dL (0.2-1.3); Blood Urea Nitrogen 14 mg/dL (9-20); Calcium 8.8 mg/dL (8.4-10.2); Carbon Dioxide 30 mmol/L (22-30); Chloride 99 mmol/L (98-107); Estimated CRCL calculation 174 ml/min; Estimated Glomerular Filt Rate > 60; Glucose 254 mg/dL (65-110); Potassium 3.9 mmol/L (3.4-5.0); Sodium 134 mmol/L (137-145)
[2022-06-10 15:18] LABS: CRP 0.8 mg/dL (<1.0)
[2022-06-10 16:28] LABS: Glucose Point of Care 183 mg/dl (65-105)
[2022-06-10] MEDS: oxyCODONE HCL (*CRX) 5 MG TAB IR PO ×2 (16:39→19:01)
--- NOTE | 2022-06-10 18:54 | PM.PNGS ---
Progress Note: A&P Assessment and Plan (1) Back pain of thoracolumbar region: Code(s): M54.50 - Low back pain, unspecified; M54.6 - Pain in thoracic spine Status: Acute Assessment and Plan: He has point tenderness over the left 12th rib in the posterior axillary line. I suspect this is the source of his pain. I will order rib films. If these are negative, consider bone scan. CTA of the chest was negative. I do not think this pain is related to his elevated serum lipase or is due to pancreatitis. (2) Cholelithiasis: Code(s): K80.20 - Calculus of gallbladder without cholecystitis without obstruction Status: Chronic Assessment and Plan: HIDA scan nondiagnostic. No evidence of cholecystitis by clinical or imaging criteria. No plans for cholecystectomy. I did explain to the patient symptoms he may experience should he develop cholecystitis in the future. (3) Elevated lipase: Code(s): R74.8 - Abnormal levels of other serum enzymes Status: Resolved Assessment and Plan: Lipase normal the dex today. Patient's pain does not seem at all related to the elevated lipase. (4) Pancreas divisum: Code(s): Q45.3 - Other congenital malformations of pancreas and pancreatic duct Status: Chronic Assessment and Plan: Incomplete pancreas divisum noted on MRCP. Can be a cause of chronic or recurrent pancreatitis but patient has had no suggestion of pancreatitis on imaging only an elevated lipase on admission. Doubt this is clinically significant. (5) Gastritis and duodenitis: Code(s): K29.90 - Gastroduodenitis, unspecified, without bleeding Status: Acute Assessment and Plan: By EGD today. Patient started on Protonix 40 mg p.o. b.i.d.. Subjective Subjective Date/Time Seen: 06/10/22 18:54 Patient reports: still having pain (Left CVA area, no better), tolerating a regular diet and afebrile Interval history: Patient continues to have pain at the lower costal margin in the left posterior axillary line. It is worse with activity. There is no change in the pain with eating. It helps to sleep on his stomach and also helps to raise his arms. No history of injury. He had an EGD today which showed duodenitis and esophagitis. He has been started on oral Protonix. Does not really feel any better. Review of Systems Review of Systems: All systems reviewed & are unremarkable except as noted in HPI and below (HPI and those items noted below) Constitutional: Constitutional: Denies chills and Denies fever(s) Cardiovascular: Cardiovascular: Denies chest pain, Denies diaphoresis, Denies dyspnea and Denies paroxysmal nocturnal dyspnea Respiratory: Respiratory: Denies chest congestion, Denies cough and Denies dyspnea Gastrointestinal: Gastrointestinal: Denies abdominal pain, Denies nausea and Denies vomiting Musculoskeletal: Musculoskeletal: Reports back pain (Left CVA) Integumentary/Breasts: Skin/Breast: Denies lesions and Denies rash Exam Const: General: comfortable and no acute distress; No confusion Nutritional Appearance: obese Orientation/consciousness: patient oriented x3 and No confusion Chest: Chest palpation & inspection: localized rib tenderness with anteroposterior compression (Left 12th rib posterior axillary line has point tenderness to palpation. ), tenderness (Twelfth rib posterior axillary line has point tenderness ) and other (Rib tenderness seems to be source of the pain.) GI: Inspection: non-distended and obesity GI Palp: Yes Soft to palpation, No Tenderness to palpation present (GI), No Guarding due to palpation present (GI) and No Rebound tenderness present Auscultation: normal bowel sounds Back/Spine/Pelvis: Back: CVA tenderness (See above, tender over rib) Neuro: General: patient oriented x3, no focal motor deficits and No confusion Extrem: General: no calf tenderness and no edema Psych: Affect: normal affect Insight: Good insight
[2022-06-10] MEDS: ACETAMINOPHEN 500 MG TABLET 1000 MG PO (19:00)
[2022-06-10] MEDS: PANTOPRAZOLE 40 MG TABLET PO (21:00)
[2022-06-11] VITALS: PULSE 92
[2022-06-11 04:00] VITALS: PULSE 88
[2022-06-11] MEDS: oxyCODONE HCL (*CRX) 5 MG TAB IR PO ×2 (05:00→11:44)
[2022-06-11 06:00] VITALS: BP 149/78; PULSE 106; RESP 18; TEMP 36.3; O2SAT 95
[2022-06-11 06:01] LABS: Glucose Point of Care 176 mg/dl (65-105)
[2022-06-11] MEDS: SUCRALFATE SUSP 100 MG/ML 10 ML UDC 1000 MG PO ×2 (06:28→11:44)
[2022-06-11 08:00] VITALS: PULSE 103
[2022-06-11 08:08] LABS: Basophils Absolute Auto 0.1 K/mm3 (0.0-0.1); Basophils Percent Auto 0.6 % (0.2-1.2); Eosinophils Absolute Auto 0.3 K/mm3 (0-0.3); Eosinophils Percent Auto 3.8 % (0-4.4); Hematocrit 45.2 % (42.0-52.0); Hemoglobin 15.3 g/dL (14.0-18.0); Immature Granulocyte Absolute 0.04 K/mm3 (0.00-0.031); Immature Granulocyte Percent A 0.5 % (0-0.5); Immature Platelet Fraction Pct 4.5 % (0.9-11.2); Lymphocytes Absolute Auto 1.39 K/mm3 (0.9-3.2); Lymphocytes Percent Auto 16.6 % (18.3-44.2); Mean Corpuscular HGB Conc 33.8 g/dl (32-36); Mean Corpuscular Hemoglobin 31.3 pg (26-34); Mean Corpuscular Volume 92.4 fl (80-100); Monocytes Absolute Auto 0.8 K/mm3 (0.1-0.6); Monocytes Percent Auto 9.3 % (2.6-8.5); Neutrophils Absolute Auto 5.8 K/mm3 (1.3-6.7); Neutrophils Percent Auto 69.2 % (45.5-73.1); Nucleated Red Blood Cells Perc 0.4 % (0.0-0.2); Platelet Count Result 209 k/mm3 (150-375); Red Blood Count 4.89 M/mm3 (4.6-6.20); Red Cell Distribution Width 13.5 % (11.5-14.5); White Blood Count 8.4 K/mm3 (4.5-10.0)
[2022-06-11 08:09] LABS: Alanine Aminotransferase 24 U/L (6-50); Albumin Level 4.1 g/dL (3.5-5.1); Alkaline Phosphatase 64 U/L (38-126); Anion Gap 9 mmol/L (8-16); Aspartate Amino Transferase 27 U/L (17-59); Bilirubin,Total 0.8 mg/dL (0.2-1.3); Blood Urea Nitrogen 10 mg/dL (9-20); Calcium 8.9 mg/dL (8.4-10.2); Carbon Dioxide 25 mmol/L (22-30); Chloride 97 mmol/L (98-107); Estimated CRCL calculation 205 ml/min; Estimated Glomerular Filt Rate > 60; Glucose 170 mg/dL (65-110); Potassium 3.6 mmol/L (3.4-5.0); Sodium 131 mmol/L (137-145)
--- NOTE | 2022-06-11 08:29 | PCPTNOTE ---
Attempted PT evaluation, pt refused stating he has been independent in the room. Hospitalist contacted and OK Discharge of PT orders.
[2022-06-11] MEDS: PANTOPRAZOLE 40 MG TABLET PO (08:33)
[2022-06-11] MEDS: lisinopriL 20 MG TABLET PO (08:33)
[2022-06-11] MEDS: DULoxetine HCL 60 MG CAPSULE.DR PO (08:33)
[2022-06-11 08:39] LABS: Glucose Point of Care 193 mg/dl (65-105)
--- NOTE | 2022-06-11 11:33 | PM.DS ---
DS: Admitting Diagnosis Discharge Date 06/11/22 Admitting Diagnosis abdominal pain DS: Discharge Diagnosis Discharge Diagnosis (1) Pancreatitis: Code(s): K85.90 - Acute pancreatitis without necrosis or infection, unspecified Status: Acute Assessment and Plan: Could be secondary to Trulicity, on hold Resolved, lipase essentially back to normal, lipase down to 50 today, procalcitonin 0, CRP 0.8 (2) Cholelithiasis: Code(s): K80.20 - Calculus of gallbladder without cholecystitis without obstruction Status: Chronic Assessment and Plan: Appreciate general surgery consultation, trend lipase and LFTs--all WNL MRCP showed cholelithiasis without choledocholithiasis, no indication for cholecystitis Check HIDA scan with CCK--positive for reduced function of gallbladder, unsure of cholecystectomy is warranted however, not convinced this is the etiology to his pain (3) Chronic depression: Code(s): F32.9 - Major depressive disorder, single episode, unspecified Status: Acute Assessment and Plan: Continue duloxetine, stable (4) Mixed hyperlipidemia: Code(s): E78.2 - Mixed hyperlipidemia Status: Acute Assessment and Plan: Continue statin (5) Essential (primary) hypertension: Code(s): I10 - Essential (primary) hypertension Status: Acute Assessment and Plan: Continue lisinopril (6) INOCENTE on CPAP: Code(s): G47.33 - Obstructive sleep apnea (adult) (pediatric); Z99.89 - Dependence on other enabling machines and devices Status: Acute Assessment and Plan: Continue home settings for CPAP (7) Controlled diabetes mellitus with hyperglycemia, with long-term current use of insulin: Code(s): E11.65 - Type 2 diabetes mellitus with hyperglycemia; Z79.4 - longterm (current) use of insulin Status: Acute Assessment and Plan: Continue Accu-Cheks and sliding scale insulin, hold metformin A1c is 9 Consult site inspector (8) Abdominal pain: Code(s): R10.9 - Unspecified abdominal pain Status: Acute Assessment and Plan: Unsure of etiology, appreciate GI consultation, plan is for EGD and possible colonoscopy Also seems to radiate into spine, check CT thoracic + lumbar spine d/t h/o severe spondylosis, possible paraspinal abscess vs MSK etiology for radiculopathy? Update: Reviewed CT scan addendum to address spine, no significant etiology to his abdominal/flank pain has been found (9) Gastritis and duodenitis: Code(s): K29.90 - Gastroduodenitis, unspecified, without bleeding Status: Acute Assessment and Plan: EGD performed today showed esophagitis, gastritis and duodenitis, recommend discontinuing tobacco containing products, starting PPI and Carafate, follow-up biopsies, defer further management to GI Plan DVT prophylaxis with SCDs GI prophylaxis not indicated Code status full code DS: Summary Hospital Course Hospital Course: 61-year-old obese patient with past medical history of diabetes and hypertension presenting with abdominal pain/flank pain/side pain. The patient states the pain started when he started Trulicity at 3 weeks ago. He noted significant nausea and abdominal pain with the Trulicity and read that there were some possible side effects and so he discontinued the medication but his pain continued. A complete workup was performed by General surgery, Gastroenterology and Hospital Medicine. CT scan of chest, abdomen, pelvis, thoracolumbar spine was completed showing only minimal abnormalities, nonsignificant on off to explain his symptoms. There was some moderate degenerative disc disease throughout with no significant stenosis. He did have cholelithiasis but no other abnormality seen. Right upper quadrant ultrasound performed showing cholelithiasis and hepatic steatosis. MRCP performed showing no choledocholithiasis. HIDA scan performed
--- NOTE | 2022-06-11 11:38 | PCOTNOTE ---
Pt. independent in room, no need for therapy services at this time. All needs met. Nursing and hospitalist aware
[2022-06-11] MEDS: ACETAMINOPHEN 500 MG TABLET 1000 MG PO (11:44)
[2022-06-11 11:58] LABS: Glucose Point of Care 198 mg/dl (65-105)
[2022-06-11 14:00] VITALS: BP 115/53; PULSE 99; RESP 20; TEMP 36.4; O2SAT 94
--- NOTE | 2022-06-11 15:16 | WPDANESPN ---
Anes - Prog Note Post-Op Date/Time: 06/11/22 15:16 Cardiovascular status: normal Respiratory status: normal Airway patency: baseline Mental status: baseline Post-Op hydration status: normal Vital Signs: Last Vital Signs Temp 97.5 F L 06/11/22 14:00 Pulse 99 06/11/22 14:00 Resp 20 06/11/22 14:00 BP 115/53 L 06/11/22 14:00 Pulse Ox 94 06/11/22 14:00 O2 Del Method Room Air 06/11/22 08:00 Pain Score (VAS): 0 I/O: Intake & Output 06/10/22 06/11/22 06/11/22 23:59 07:59 15:59 Intake Total 1000 1100 600 Balance 1000 1100 600 Laboratory Tests 06/11/22 07:09 06/11/22 07:09 06/10/22 06/10/22 06/10/22 14:34 14:34 14:34 WBC 9.7 RBC 5.12 Hgb 15.4 Hct 47.2 MCV 92.2 MCH 30.1 MCHC 32.6 RDW 13.2 Plt Count 199 MPV 9.9 Immature Gran % (Auto) 0.4 Neut % (Auto) 73.8 H Lymph % (Auto) 14.9 L [place] % (Auto) 7.4 Eos % (Auto) 2.8 Baso % (Auto) 0.7 Lymph # (Auto) 1.44 [place] # (Auto) 0.7 H Eos # (Auto) 0.3 Baso # (Auto) 0.1 Abs Immat Gran (auto) 0.04 H Absolute Neuts (auto) 7.1 H Absolute Nucleated RBC 0.0 Nucleated RBC % 0.0 % Immature Plt Fraction Sodium Potassium Chloride Carbon Dioxide Anion Gap BUN Creatinine Estim Creat Clear Calc Estimated GFR Glucose POC Capillary Glucose Calcium Total Bilirubin AST ALT Alkaline Phosphatase C-Reactive Protein 0.8 Total Protein Albumin Procalcitonin 0.0 06/10/22 06/10/22 06/11/22 16:25 21:23 07:09 WBC 8.4 RBC 4.89 Hgb 15.3 Hct 45.2 MCV 92.4 MCH 31.3 MCHC 33.8 RDW 13.5 Plt Count 209 MPV 11.0 H Immature Gran % (Auto) 0.5 Neut % (Auto) 69.2 Lymph % (Auto) 16.6 L [place] % (Auto) 9.3 H Eos % (Auto) 3.8 Baso % (Auto) 0.6 Lymph # (Auto) 1.39 [place] # (Auto) 0.8 H Eos # (Auto) 0.3 Baso # (Auto) 0.1 Abs Immat Gran (auto) 0.04 H Absolute Neuts (auto) 5.8 Absolute Nucleated RBC 0.0 Nucleated RBC % 0.4 H % Immature Plt Fraction 4.5 Sodium Potassium Chloride Carbon Dioxide Anion Gap BUN Creatinine Estim Creat Clear Calc Estimated GFR Glucose POC Capillary Glucose 183 H 176 H Calcium Total Bilirubin AST ALT Alkaline Phosphatase C-Reactive Protein Total Protein Albumin Procalcitonin 06/11/22 06/11/22 06/11/22 07:09 08:03 11:46 WBC RBC Hgb Hct MCV MCH MCHC RDW Plt Count MPV Immature Gran % (Auto) Neut % (Auto) Lymph % (Auto) [place] % (Auto) Eos % (Auto) Baso % (Auto) Lymph # (Auto) [place] # (Auto) Eos # (Auto) Baso # (Auto) Abs Immat Gran (auto) Absolute Neuts (auto) Absolute Nucleated RBC Nucleated RBC % % Immature Plt Fraction Sodium 131 L Potassium 3.6 Chloride 97 L Carbon Dioxide 25 Anion Gap 9 BUN 10 Creatinine 0.50 L Estim Creat Clear Calc 205 Estimated GFR > 60 Glucose 170 H POC Capillary Glucose 193 H 198 H Calcium 8.9 Total Bilirubin 0.8 AST 27 ALT 24 Alkaline Phosphatase 64 C-Reactive Protein Total Protein 7.0 Albumin 4.1 Procalcitonin Post-procedural complaints: none Patient Feedback: Patient satisfied with anesthetic care.
--- NOTE | 2022-06-11 15:27 | PM.PNGS ---
Progress Note: A&P Assessment and Plan (1) Back pain of thoracolumbar region: Code(s): M54.50 - Low back pain, unspecified; M54.6 - Pain in thoracic spine Status: Acute Assessment and Plan: Somewhat better. Appears to be musculoskeletal. Okay to discharge from my standpoint. (2) Gastritis and duodenitis: Code(s): K29.90 - Gastroduodenitis, unspecified, without bleeding Status: Acute Assessment and Plan: Home on acid reducing medication. (3) Cholelithiasis: Code(s): K80.20 - Calculus of gallbladder without cholecystitis without obstruction Status: Chronic Assessment and Plan: Asymptomatic as best I can tell. Patient aware of symptoms should cholecystitis developed. (4) Pancreas divisum: Code(s): Q45.3 - Other congenital malformations of pancreas and pancreatic duct Status: Chronic Assessment and Plan: Noted on MRCP. Asymptomatic in my opinion. Subjective Subjective Date/Time Seen: 06/11/22 15:27 Patient reports: pain is less (Back pain a little better. Plans to go home today), tolerating a regular diet and afebrile Review of Systems Review of Systems: All systems reviewed & are unremarkable except as noted in HPI and below (HPI) Exam GI: Inspection: obesity GI Palp: Yes Soft to palpation and No Tenderness to palpation present (GI) Auscultation: normal bowel sounds Back/Spine/Pelvis: Back: CVA tenderness (Left 12th rib posterior axillary line as before) Objective Data Vital Signs Vital Signs: Vital Signs - 24 hr 06/10/22 16:00 06/10/22 20:00 06/10/22 22:00 Temperature 36.6 C Pulse Rate 105 H 105 H 97 Respiratory Rate 24 H 18 Blood Pressure 147/74 H Pulse Oximetry 93 95 Oxygen Delivery Room Air 06/10/22 20:00 06/11/22 00:00 06/11/22 04:00 Temperature Pulse Rate 100 92 88 Respiratory Rate Blood Pressure Pulse Oximetry Oxygen Delivery 06/11/22 06:00 06/11/22 08:00 06/11/22 14:00 Temperature 36.3 C L 36.4 C L Pulse Rate 106 H 99 Respiratory Rate 18 20 Blood Pressure 149/78 H 115/53 L Pulse Oximetry 95 94 Oxygen Delivery Room Air Intake/Output Intake/Output: Intake & Output 06/08/22 06/09/22 06/10/22 06/11/22 23:59 23:59 23:59 23:59 Intake Total 1000 1999 2211 1700 Balance 1000 1999 2211 1700 Meds/Results Medications: Active Medications Generic Name Dose Route Start Last Admin Trade Name Freq PRN Reason Stop Dose Admin Acetaminophen 1,000 mg 06/10/22 18:00 06/11/22 11:44 Acetaminophen 500 Mg Tablet PO 1,000 mg Q8H INDERJIT Administration Dextrose 12.5 gm 06/09/22 01:45 Dextrose 50% 25 Gm/50 Ml Syringe IV PUSH PRN PRN Hypoglycemia Protocol Duloxetine HCl 60 mg 06/09/22 09:00 06/11/22 08:33 Duloxetine Hcl 60 Mg Capsule.Dr PO 60 mg DAILY INDERJIT Administration Glucagon 1 mg 06/09/22 01:45 Glucagon For Inj 1 Mg Vial IM PRN PRN Hypoglycemia Protocol Glucose 15 gm 06/09/22 01:45 Glucose Oral Gel 15 Gm Of Glucse In 37.5 Gm Tube PO PRN PRN Hypoglycemia Protocol Sodium Chloride 1,000 mls @ 125 mls/hr 06/08/22 15:40 06/11/22 12:42 Normal Saline Iv IV CONT Not Given .Q8H INDERJIT Dextrose 1,000 mls @ 100 mls/hr 06/09/22 01:45 Dextrose 5% 1,000 Ml IVPB PRN PRN Hypoglycemia Protocol Insulin Aspart 2 - 5 units 06/09/22 08:00 06/11/22 11:43 Insulin Aspart (*Bkc) 100 Units/Ml SUB-Q Not Given [facility] Protocol Lisinopril 20 mg 06/09/22 09:00 06/11/22 08:33 Lisinopril 20 Mg Tablet PO 20 mg DAILY INDERJIT Administration Ondansetron HCl 4 mg 06/08/22 15:37 Ondansetron Inj 4 Mg/2 Ml Vial IV PUSH Q4H PRN Nausea Oxycodone HCl 5 mg 06/10/22 18:00 06/11/22 11:44 Oxycodone Hcl (*Crx) 5 Mg Tab Ir PO 5 mg Q6H INDERJIT Administration Pantoprazole Sodium 40 mg 06/10/22 21:00 06/11/22 08:33 Pantoprazole 40 Mg Tablet PO 40 mg
--- NOTE | 2022-06-11 17:12 | WPDGIPROGNO ---
Progress Note: A&P Assessment and Plan (1) Gastritis and duodenitis: Code(s): K29.90 - Gastroduodenitis, unspecified, without bleeding Status: Acute Assessment and Plan: better on ppi egd in 3 months to assess healing (2) Abdominal pain: Code(s): R10.9 - Unspecified abdominal pain Status: Acute Assessment and Plan: improving (3) Pancreas divisum: Code(s): Q45.3 - Other congenital malformations of pancreas and pancreatic duct Status: Chronic (4) Left upper quadrant pain: Code(s): R10.12 - Left upper quadrant pain Status: Acute (5) Pancreatitis: Code(s): K85.90 - Acute pancreatitis without necrosis or infection, unspecified Status: Acute Assessment and Plan: resolved, low fat diet (6) Cholelithiasis: Code(s): K80.20 - Calculus of gallbladder without cholecystitis without obstruction Status: Chronic Subjective Date/time seen: 06/11/22 14:00 Interval history: less pain and doing better, going home Review of Systems Review of Systems: All systems reviewed & are unremarkable except as noted in HPI and below Exam Const: General: comfortable and no acute distress Nutritional Appearance: obese Orientation/consciousness: patient oriented x3 HENMT: Head: normocephalic and atraumatic Ears: hearing grossly normal bilaterally Eyes: General: appearance normal, both eyes and all related structures EOM: EOMs intact bilaterally Neck: Neck: normal visual inspection and full ROM Resp: Effort & Inspection: no respiratory distress Cardio: Rate: regular rate Rhythm: regular rhythm Heart sounds: S1 normal heart sound present and S2 normal heart sound present GI: Inspection: non-distended, obesity and no visible herniation GI Palp: Yes Soft to palpation, No Guarding due to palpation present (GI) and Yes No hepatosplenomegaly present Auscultation: normal bowel sounds Skin: General skin exam: normal color Rashes: no rashes Neuro: General: moves all extremities and no focal motor deficits Speech: normal speech Motor exam (neuro): 5/5 motor strength present throughout Extrem: General: normal to inspection and no edema Psych: Mental Status: mental status grossly normal Affect: normal affect Attitude: cooperative Insight: Good insight present (Psych) Judgement: Good judgement present (Psych) Objective Data Vital Signs Vital Signs: Vital Signs - 24 hr 06/10/22 20:00 06/10/22 22:00 06/10/22 20:00 Temperature 97.9 F Pulse Rate 105 H 97 100 Respiratory Rate 24 H 18 Blood Pressure 147/74 H Pulse Oximetry 93 95 Oxygen Delivery Room Air 06/11/22 00:00 06/11/22 04:00 06/11/22 06:00 Temperature 97.3 F L Pulse Rate 92 88 106 H Respiratory Rate 18 Blood Pressure 149/78 H Pulse Oximetry 95 Oxygen Delivery 06/11/22 08:00 06/11/22 14:00 06/11/22 08:00 Temperature 97.5 F L Pulse Rate 99 103 H Respiratory Rate 20 Blood Pressure 115/53 L Pulse Oximetry 94 Oxygen Delivery Room Air Intake/Output Intake/Output: Intake & Output 06/08/22 06/09/22 06/10/22 06/11/22 23:59 23:59 23:59 23:59 Intake Total 1000 1999 2211 1700 Balance 1000 1999 2211 1700 Meds/Results Radiology Results: ITS Impressions Chest/Abdomen/Pelvis CTA 06/08/22 12:57 Impression: No large central pulmonary embolus. Timing of the contrast bolus is suboptimal to evaluate for smaller, more peripheral pulmonary emboli. Cholelithiasis. ADDENDUM: 06/10/22 1202 Specific, non the thoracolumbar spine was requested. No fracture or subluxation seen in the visualized thoracolumbar spine. There is moderate degenerative disc narrowing at L5-S1. There is probable disc bulge and facet arthropathy L4-L5, with suspected mild to moderate canal stenosis at this level. No definite significant degenerative change seen in the thoracic spine. Abdomen Ultrasound 06/08/22 16:06 IMPRESSION: 1: Erin
== END 2022-06-11 16:05 | disposition home or self-care (01) | DRG 439 ==
LOC: ANHED 15:37 → ANH3MEDSUR 17:16
PROVIDERS: Internal Medicine Gastroenterology; Nurse Practitioner; Admitting Provider Internal Medicine; Emergency Provider Emergency Medicine; PCP Family Medicine; Visit Provider Student in an Organized Health Care Education/Training Program
PROC: 0DJ08ZZ Inspection of Upper Intestinal Tract, Via Natural or Artificial Opening Endoscopic (ICD-10-PCS; CPT 43235; principal; 2022-06-10 15:00)
DX: K85.90 Acute pancreatitis without necrosis or infection, unspecified (principal); Q45.3 Other congenital malformations of pancreas and pancreatic duct; Z68.42 Body mass index [BMI] 45.0-49.9, adult; K29.70 Gastritis, unspecified, without bleeding; K21.00 Gastro-esophageal reflux disease with esophagitis, without bleeding; K29.80 Duodenitis without bleeding; K80.20 Calculus of gallbladder without cholecystitis without obstruction; F32.9 Major depressive disorder, single episode, unspecified; E78.2 Mixed hyperlipidemia; I10 Essential (primary) hypertension; Z20.822 Contact with and (suspected) exposure to COVID-19; G47.33 Obstructive sleep apnea (adult) (pediatric); E11.42 Type 2 diabetes mellitus with diabetic polyneuropathy; E11.65 Type 2 diabetes mellitus with hyperglycemia; E66.01 Morbid (severe) obesity due to excess calories; M54.50 Low back pain, unspecified; M54.6 Pain in thoracic spine; Z79.4 Long term (current) use of insulin; Z87.891 Personal history of nicotine dependence
CPT/HCPCS: 36415; 71100; 71275; 74177; 74183; 76376; 76705; 78226; 80053; 81001; 82948; 83036; 83605; 83615; 83690; 83735; 84145; 84443; 84484; 85025; 85055; 85610; 85652; 85730; 86140; 87081; 87636; 88305; 93005; 96361; 96374; 96375; 99285; A9270; A9537; A9577; G0378; J0360; J2270; J2405; J2704; J7030; J7120; Q9967

== ENCOUNTER 2022-07-29 00:36 | Day surgery (SDC) | payer OTHER, SELFPAY ==
[2022-07-15 13:36] VITALS: BMI 46.9
[2022-07-29 08:48] VITALS: BP 119/76; PULSE 111; RESP 18; TEMP 36.3; O2SAT 94
[2022-07-29] MEDS: LACTATED RINGERS 1,000 ML 150 ML IV CONT (09:00)
[2022-07-29 09:01] LABS: Glucose Point of Care 159 mg/dl (65-105)
--- NOTE | 2022-07-29 09:02 | WPDANESEPPF ---
Anes - Initial Pre Proc Eval Procedure: Operation Date: 07/29/22 10:00 Proposed Procedures p Esophagogastroduodenoscopy & Screening Colonoscopy - Eliceo Maynard MD Date/Time: 07/29/22 09:02 Surgeon: Eliceo Maynard MD Pre Op Diagnosis: peptic ulcer disease,esophagitis, neoplasm Patient Data Age: 61 Gender: M Height: 1.83 m Weight: 154 kg Last Vital Signs Temp 97.4 F L 07/29/22 08:48 Pulse 111 H 07/29/22 08:48 Resp 18 07/29/22 08:48 BP 119/76 07/29/22 08:48 Pulse Ox 94 07/29/22 08:48 O2 Del Method Room Air 07/29/22 08:48 Allergies Allergy/AdvReac Type Severity Reaction Status Date / Time No Known Allergies Allergy Mild Unverified 07/29/22 08:46 Home Medications Medication Instructions Recorded Confirmed Type insulin degludec 200 unit/mL (3 See Rx Instructions .Route 07/21/21 07/15/22 Rx mL) subcutaneous pen (Tresiba .COMPLEX #36 syringes FlexTouch U-200 insulin) atorvastatin 40 mg tablet (Lipitor) 40 mg PO DAILY #90 tabs 10/15/21 07/15/22 Rx dapagliflozin 10 mg tablet 10 mg PO QAM #90 tabs 10/15/21 07/15/22 Rx (Farxiga) duloxetine 60 mg capsule,delayed 60 mg PO DAILY #90 caps 11/30/21 07/15/22 Rx release lisinopril 20 mg tablet 20 mg PO DAILY #90 tabs 05/11/22 07/15/22 Rx hydrocodone 5 mg-acetaminophen 325 1 tablet PO Q6H PRN pain #120 tabs 07/07/22 07/15/22 Rx mg tablet cholecalciferol (vitamin D3) 25 25 mcg PO DAILY 07/15/22 07/15/22 History mcg (1,000 unit) tablet (Vitamin D3) mecobalamin (vitamin B12) 1,000 1,000 mcg PO DAILY 07/15/22 07/15/22 History mcg chewable tablet metformin 500 mg tablet,extended 1,000 mg PO BID 07/15/22 07/15/22 History release 24 hr Laboratory Tests 07/29/22 08:59 POC Capillary Glucose 159 mg/dl H mg/dl (65-105) Patient hx anesthesia problems: none Family hx anesthesia problems: none Results Review: All pre-operative results and documents have been reviewed as part of the pre-operative evaluation. [facility] Past Medical History Medical History (Updated 06/30/22 @ 15:42 by Sunny Clarke MD) Abdominal pain Acute left-sided low back pain without sciatica CT of the abdomen and pelvis revealed no obvious reason for his back pain. No obstructing stones 05/17/2022. Acute non-recurrent maxillary sinusitis Bilateral chronic knee pain Chest pain (~05/17/22) Chest/abdomen/pelvis CTA negative for PE or other pathology In the ER 06/08/2022. Controlled diabetes mellitus with hyperglycemia, with long-term current use of insulin glucose 92 and hemoglobin A1c 8.3 on 04/23/2021 with microalbumin ratio of 22. glucose 89 with hemoglobin A1c 7.8 on 03/03/2022. Glucose 178 with hemoglobin A1c 9.5 with microalbumin ratio of 5.5 on 06/03/2022. Diabetic peripheral neuropathy Duodenitis (~05/2022) duodenitis on EGD 06/10/2022. Elevated lipase GERD with esophagitis (~05/2022) esophagitis on EGD 06/10/2022. Duodenitis. Hyperkalemia (03/03/22) potassium 5.5 on 03/03/2022. potassium 5.4 on 03/22/2022. Potassium 5.2 on 06/03/2022. Left flank pain Left upper quadrant pain Morbid obesity with BMI of 45.0-49.9, adult Morbid obesity with BMI of 50.0-59.9, adult Pancreas divisum Tachycardia Surgical History Surgical History H/O vasectomy S/P ORIF (open reduction internal fixation) fracture Right femur rosa isela which was subsequently removed. Right wrist surgery Family History Family History Mother Patient's mother is , Onset Age: 81 Acute myocardial infarction Family history of malignant neoplasm Father Patient's father is , Onset Age: 82 Family history of malignant neoplasm Grandparent Family history of cardiovascular disease Social History Social History Social History: The patient is
--- NOTE | 2022-07-29 09:09 | PM.HPGS ---
History of Present Illness History of Present Illness Consent: Risks, benefits, and alternatives have been discussed and questions answered. Patient agrees to proceed with procedure. Chief complaint: peptic ulcer disease,esophagitis, neoplasm Narrative: Ruddy Cohen is a 61 year old male with PUD 2 months ago and mild pancreatitis, he completed 1 month of ppi recently some pain again, never had colonoscopy. Review of Systems Constitutional: Constitutional: Denies headache(s) and Denies weakness Eyes: Eyes: Denies blurry vision ENT: Reports Normal hearing present, Denies headache(s) and Denies neck pain Cardiovascular: Cardiovascular: Denies chest pain and Denies dyspnea Respiratory: Respiratory: Denies dyspnea Gastrointestinal: Gastrointestinal: Reports no additional gastrointestinal complaints Genitourinary: Genitourinary: Denies dysuria Musculoskeletal: Musculoskeletal: Denies neck pain Integumentary/Breasts: Skin/Breast: Denies dry skin Neurologic: Reports Normal hearing present, Denies headache(s) and Denies weakness Psychiatric: Psychiatric: Denies anxiety Endocrine: Endocrine: Denies change in body appearance Hematologic/Lymphatic: Hematologic/Lymphatic: Denies easy bleeding Allergic/Immunologic: Allergic/Immunologic: Denies urticaria [facility] Past Medical History Medical History (Updated 07/29/22 @ 09:10 by Eliceo Maynard MD) Abdominal pain Acute left-sided low back pain without sciatica CT of the abdomen and pelvis revealed no obvious reason for his back pain. No obstructing stones 05/17/2022. Acute non-recurrent maxillary sinusitis Bilateral chronic knee pain Chest pain (~05/17/22) Chest/abdomen/pelvis CTA negative for PE or other pathology In the ER 06/08/2022. Colon cancer screening Controlled diabetes mellitus with hyperglycemia, with long-term current use of insulin glucose 92 and hemoglobin A1c 8.3 on 04/23/2021 with microalbumin ratio of 22. glucose 89 with hemoglobin A1c 7.8 on 03/03/2022. Glucose 178 with hemoglobin A1c 9.5 with microalbumin ratio of 5.5 on 06/03/2022. Diabetic peripheral neuropathy Duodenitis (~05/2022) duodenitis on EGD 06/10/2022. Elevated lipase GERD with esophagitis (~05/2022) esophagitis on EGD 06/10/2022. Duodenitis. Hyperkalemia (03/03/22) potassium 5.5 on 03/03/2022. potassium 5.4 on 03/22/2022. Potassium 5.2 on 06/03/2022. Left flank pain Left upper quadrant pain Morbid obesity with BMI of 45.0-49.9, adult Morbid obesity with BMI of 50.0-59.9, adult Pancreas divisum Tachycardia Surgical History Surgical History H/O vasectomy S/P ORIF (open reduction internal fixation) fracture Right femur rosa isela which was subsequently removed. Right wrist surgery Family History Family History Mother Patient's mother is , Onset Age: 81 Acute myocardial infarction Family history of malignant neoplasm Father Patient's father is , Onset Age: 82 Family history of malignant neoplasm Grandparent Family history of cardiovascular disease Social History Social History Social History: The patient is and lives with his he has 3 children. The patient is currently unemployed. 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 Code status full code Years smoked: 44 Smoking status: Current every day smoker Tobacco type: smokeless tobacco Smokeless tobacco user: chewing tobacco Additional smoking assessment comments: Quite smoking 6 months ago, still chews tobacco Alcohol intake: current Drinks per week: 3 Alcohol use details: 6-8 drinks monthly Substance use: former Substance use type: does not use Lack of Transportation: No Lack of Food: Never True Current Housing: I Have Housing Concerned About Future Housing: No
--- NOTE | 2022-07-29 09:48 | SUR.OPER ---
EGD END: 934 COLON START: 939
[2022-07-29 09:58] VITALS: BP 118/78; PULSE 105; RESP 20; O2SAT 93
[2022-07-29 10:08] VITALS: BP 112/72; PULSE 104; RESP 20; O2SAT 92
[2022-07-29 10:18] VITALS: BP 123/80; PULSE 98; RESP 20; O2SAT 94
== END 2022-07-29 10:20 | disposition home or self-care (01) ==
PROVIDERS: PCP Family Medicine; Visit Provider Internal Medicine Gastroenterology
PROC: 0DJ08ZZ Inspection of Upper Intestinal Tract, Via Natural or Artificial Opening Endoscopic (ICD-10-PCS; CPT 43235; principal; 2022-07-29 10:00)
DX: Z12.11 Encounter for screening for malignant neoplasm of colon (principal); K57.30 Diverticulosis of large intestine without perforation or abscess without bleeding; K64.8 Other hemorrhoids; K21.00 Gastro-esophageal reflux disease with esophagitis, without bleeding; K29.70 Gastritis, unspecified, without bleeding; Z87.11 Personal history of peptic ulcer disease; E11.42 Type 2 diabetes mellitus with diabetic polyneuropathy; E66.01 Morbid (severe) obesity due to excess calories; Z68.42 Body mass index [BMI] 45.0-49.9, adult; F17.220 Nicotine dependence, chewing tobacco, uncomplicated; Z79.4 Long term (current) use of insulin; Z79.84 Long term (current) use of oral hypoglycemic drugs
CPT/HCPCS: 43239; 45378; 82948; 88305; J2704; J7120